=== PATIENT | male | born 1945 | race Caucasian/White ===

== ENCOUNTER 2021-12-28 22:09 | Emergency (ER) | payer MEDICARE ==
[2021-12-28 22:38] LABS: Hematocrit 37.4 % (42-50); Hemoglobin 12.1 g/dL (12.5-18.0); Mean Cell Volume 92.3 fL (78-100); Mean Corpuscular Hemoglobin 29.9 pg (26-32); Mean Corpuscular Hgb Concent. 32.4 g/dL (32-36); Mean Platelet Volume 10.3 fL (7.5-11.0); Platelet Count 154 x10^3/uL (150-450); Red Blood Count 4.05 x10^6/uL (4.1-5.6); Red Cell Distribution Width 13.4 % (11.5-14.0); White Blood Count 15.5 x10^3/uL (4.0-10.5)
--- NOTE | 2021-12-28 22:39 | ERPHSYRPT ---
- History of Present Illness Time Seen by Provider: 12/28/21 22:30 Source: patient Exam Limitations: no limitations Physician History: Patient is 76-year-old male presents to our ED via EMS for evaluation of severe low back pain. Patient also complaining of abdominal pain and chest pain. Patient's symptoms have been ongoing for approximately 3 days. Patient has been laying in bed for 3 days. Patient states he has had little to eat. Patient symptoms are getting progressively worse. On physical exam patient is noted to have a distended abdomen. Suprapubic region is distended and tender. Left lower extremity is edematous and cellulitic. Veras catheter was placed. 800 cc of urine was immediately expressed. Veras catheter was maintained. Left lower extremity pitting edema observed at 2+. Patient has a sternotomy scar from previous open heart surgery. Patient is a poor historian and unable to provide details however he does state his back abdomen and chest are hurting him. No trauma. Patient observed to have a fever of 102 upon arrival. Patient's symptoms are progressive. Symptoms are moderate in intensity. No specific worsening or improving factors. No family at bedside at this time. Patient is a poor historian. Patient voices no other complaints or concerns at this time. Portions of this note were created with voice recognition technology. There may be grammatical, spelling, punctuation or sound alike errors Timing/Duration: day(s) (3 days) Severity: moderate Modifying Factors: Improves With: nothing (Patient has not taken any analgesics for pain control.) Associated Symptoms: abdominal pain, chest pain (Associated symptoms include abdominal pain and chest pain. Patient also observed to have left lower extremity cellulitis.), No nausea, No vomiting, No shortness of breath, No headaches, No syncope, No seizure Allergies/Adverse Reactions: acetaminophen [From Tylenol] Allergy (Verified 12/29/21 02:29) codeine Allergy (Verified 12/28/21 22:44) Home Medications: Arginine [l-Arginine] 500 mg PO DAILY 12/28/21 [History] Ascorbic Acid [Vitamin C] 500 mg PO DAILY 12/28/21 [History] Aspirin 81 gm Chew [Baby Aspirin 81 mg Chew] 1 tab PO DAILY 12/28/21 [Hi story] Atorvastatin Calcium 20 mg PO DAILY 12/28/21 [History] Cider Vinegar [Apple Cider Vinegar] 450 mg PO DAILY 12/28/21 [History] Cinnamon Bark [Cinnamon] 1,000 mg PO BID 12/28/21 [History] Clopidogrel Bisulfate [Clopidogrel] 75 mg PO DAILY 12/28/21 [History] Fish Oil/Dha/Epa [Fish Oil 1,200 mg Fish Oil] 1 cap PO BID 12/28/21 [History] Furosemide 40 mg PO DAILY 12/28/21 [History] Gabapentin [Neurontin] 300 mg PO TID 12/28/21 [History] Garlic 1,000 mg PO BID 12/28/21 [History] Glipizide 10 mg [Glucotrol 10 MG] 10 mg PO BID 12/28/21 [History] Glutamine [l-Glutamine] 1 tab PO DAILY 12/28/21 [History] Hydralazine HCl 10 mg PO TID 12/28/21 [History] Insulin Glargine,Hum.rec.anlog [Basaglar Kwikpen U-100] 16 units SQ DAILY 12/28/21 [History] Isosorbide Mononitrate 30 mg [Imdur 30 MG] 1 tab PO DAILY 12/28/21 [History] L. Rham,Para/B. Lactis/Vit C [Probiotic Digestive Support Cp] 1 tab PO TID 12/28/21 [History] L.acid/L.casei/B.bif/B.prashanth/Fos [Probiotic Blend Capsule] 1 cap PO DAILY 12/28/21 [History] Loratadine [Claritin] 10 mg PO DAILY 12/28/21 [History] Prazosin HCl 5 mg PO DAILY 12/28/21 [History] Saw [place] 320 mg PO BID 12/28/21 [History] Sodium Zirconium Cyclosilicate [Lokelma] 10 gm PO DAILY 12/28/21 [History] Ubidecarenone [Coq10] 100 mg PO DAILY 12/28/21 [History] Vit B6/L. Mefolate/Me-B12/Ala [Nufola Capsule] 1 tab PO DAILY 12/28/21 [History] Vitamin B Complex [B Complex] 1 tab PO DAILY 12/28/21 [History] carvediloL [Carvedilol] 6.25 mg PO BID 12/28/21 [History] - Review of Systems All Other Systems: Unable due to condition (Severe pain and discomfort.) - Nursing Vital Signs Nursing Vital Signs: Initial Vital Signs Temperature 99.3 F 12/28/21 22:09 Pulse Rate 121 H 12/28/21 22:09 Respiratory Rate 12/28/21 22:09 Blood Pressure 180/160 12/28/21 22:09 O2 Sat by Pulse Oximetry 91 L 12/28/21 22:09 Pain Scale Pain Intensity 5 - Physical Exam General Appearance: moderate distress (Patient in severe pain. Patient complains of pain in the abdomen and chest and back. Abdomen is distended.) Eye Exam: PERRL/EOMI, eyes nml inspection, No scleral icterus Ears, Nose, Throat Exam: normal ENT inspection, TMs normal, pharynx normal, moist mucous membranes Neck Exam: normal inspection, non-tender, supple, full range of motion Respiratory Exam: normal breath sounds, lungs clear (Patient hypoxic at 91%. However lungs are clear. No respiratory distress.), airway intact (Sinus tachycardia on monitor), No chest tenderness, No respiratory distress Cardiovascular Exam: normal peripheral pulses (Unable to palpate peripheral pulses due to left lower extremity swelling) Gastrointestinal/Abdomen Exam: soft, tenderness, distention, No guarding, No hepatomegaly, No organomegaly Male Genitalia Exam: normal genitalia, No testicular tenderness Rectal Exam: deferred Back Exam: normal inspection, normal range of motion, No CVA tenderness, No vertebral tenderness Extremity Exam: normal inspection, normal range of motion, pelvis stable, swelling (Left lower extremity swelling. No calf pain.), No calf tenderness, No eboni's sign Neurologic Exam: alert (Alert and oriented x1), cooperative, normal mood/affect, sensation nml, No motor deficits, No sensory deficit, No motor weakness, No facial droop Skin Exam: normal color, warm, dry, other (Cellulitis left lower extremity), No rash Lymphatic Exam: No adenopathy SpO2 Interpretation: normal SpO2: 98 O2 Delivery: Room Air - Course Nursing assessment & vital signs reviewed: Yes EKG Interpreted by Me: RATE (121), Sinus Tach, NORMAL AXIS, Right Bundle Branch Block - CT Exams Abdomen/Pelvis CT Interpretation: Tele-radiologist Report (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 Bilateral renal artery ostial stenosis, proximal stenosis of inferior mesenteric artery, abdominal aortic and branch vessel peripheral artery disease no evidence of abdominal aortic aneurysm dissection or significant stenosis. F) Ordered Tests: Active Orders 24 hr Category Date Time Status Bead Filler STAT Care 12/28/21 22:15 Active EKG-ER Only STAT Care 12/28/21 22:14 Active IV Insertion STAT Care 12/28/21 22:14 Active Pulse Oximetry (ED) STAT Care 12/28/21 22:14 Active CTA ABD/PEL W AND/OR W/O CONTR [CT] Stat Exams 12/28/21 22:18 Taken CTA CHEST W AND/OR WO [CT] Stat Exams 12/28/21 22:18 Taken BLOOD CULTURE Stat Lab 12/28/21 22:50 Received CBC W DIFF Stat Lab 12/28/21 22:35 Completed CK-Creatinine Phosphokinase Stat Lab 12/28/21 22:35 Completed CMP Stat Lab 12/28/21 22:35 Completed LIPASE Stat Lab 12/28/21 22:35 Completed Lactic Acid Stat Lab 12/28/21 23:08 Completed Lactic Acid Stat Lab 12/29/21 01:31 Received Manual Differential NC Stat Lab 12/28/21 22:35 Completed NT PRO BNP Stat Lab 12/28/21 22:35 Completed PROCALCITONIN Stat Lab 12/28/21 23:23 Completed TROPONIN Q3H Lab 12/28/21 22:35 Completed TROPONIN Q3H Lab 12/29/21 01:36 Completed TROPONIN Q3H Lab 12/29/21 04:15 Ordered TROPONIN Q3H Lab 12/29/21 07:15 Ordered TROPONIN Q3H Lab 12/29/21 10:15 Ordered TSH [TSH, 3RD Generation] Stat Lab 12/28/21 22:52 Completed UA W/RFX CULTURE Stat Lab 12/28/21 23:25 Completed Medication Summary Generic Name Dose Route Start Last Admin Trade Name Freq PRN Reason Stop Dose Admin Nitroglycerin/Dextrose 250 mls @ 1.5 mls/hr 12/29/21 00:28 12/29/21 02:29 Ntg 0.2mg/Ml In D5w Glass IV 01/28/22 00:27 2.5 mcg/min .Q24H PRN 0.75 mls/hr CHEST PAIN Titration Protocol 5 MCG/MIN Discontinued Medications Generic Name Dose Route Start Last Admin Trade Name Freq PRN Reason Stop Dose Admin Heparin Sodium (Beef Lung) Confirm 12/29/21 00:35 Heparin 5000 Unit/0.5 Ml Syringe Administered 12/29/21 00:36 Dose 5,000 unit .ROUTE .STK-MED ONE Vancomycin HCl 1 gm in 200 mls @ 125 mls/hr 12/28/21 23:15 12/29/21 00:08 Vancomycin 1 Gram/200 Ml Bag IV 12/29/21 00:50 125 ml/hr STAT ONE 125 mls/hr Administration Piperacillin Sod/Tazobactam 100 mls @ 200 mls/hr 12/28/21 23:16 12/28/21 23:38 Sod 3.375 gm/ Sodium Chloride IV 12/28/21 23:45 200 mls/hr STAT ONE Administration Sodium Chloride Confirm 12/28/21 23:37 Sodium Chloride 100ml Mini-Bag Plus Administered 12/28/21 23:38 Dose 100 mls @ ud IV .STK-MED ONE Vancomycin HCl Confirm 12/29/21 00:08 Vancomycin 1 Gram/200 Ml Bag Administered 12/29/21 00:09 Dose 1 gm in 200 mls @ ud IV .STK-MED ONE Heparin Sodium/Dextrose Confirm 12/29/21 00:36 Heparin 25,000 Units/D5w 250ml Premix Administered 12/29/21 00:37 Dose 25,000 units in 250 mls @ ud IV .STK-MED ONE Morphine Sulfate 2 mg 12/28/21 22:41 12/28/21 23:09 Morphine Sulfate 2 Mg/Ml Inj IV 12/28/21 22:42 2 mg STAT ONE Administration Morphine Sulfate Confirm 12/28/21 23:09 Morphine Sulfate 2 Mg/Ml Inj Administered 12/28/21 23:10 Dose 2 mg .ROUTE .STK-MED ONE Ondansetron HCl 4 mg 12/28/21 23:14 12/28/21 23:16 Ondansetron Hcl 4 Mg/2 Ml Vial IV 12/28/21 23:15 4 mg STAT ONE Administration Ondansetron HCl Confirm 12/28/21 23:15 Ondansetron Hcl 4 Mg/2 Ml Vial Administered 12/28/21 23:16 Dose 4 mg .ROUTE .STK-MED ONE Piperacillin Sod/Tazobactam Sod Confirm 12/28/21 23:35 Piperacillin/Tazobactam Sodium 3.375 Gm Vial Administered 12/28/21 23:36 Dose 3.375 gm IV .STK-MED ONE Piperacillin Sod/Tazobactam Sod Confirm 12/28/21 23:37 Piperacillin/Tazobactam Sodium 3.375 Gm Vial Administered 12/28/21 23:38 Dose 3.375 gm IV .STK-MED ONE Lab/Rad Data: Laboratory Result Diagrams 12/28/21 22:35 12/28/21 22:35 Laboratory Results 12/29/21 12/28/21 12/28/21 Range/Units 01:36 23:25 23:23 WBC (4.0-10.5) x10^3/uL RBC (4.1-5.6) x10^6/uL Hgb (12.5-18.0) g/dL Hct (42-50) % MCV (78-100) fL MCH (26-32) pg MCHC (32-36) g/dL RDW (11.5-14.0) % Plt Count (150-450) x10^3/uL MPV (7.5-11.0) fL Segmented Neutrophils (36.-66.) % Band Neutrophils (0.0-2.0) % Lymphocytes (Manual) (24-44) % Monocytes (Manual) (0.0-12.0) % Dohle Bodies Platelet Estimate (NORMAL) RBC Morphology Sodium (137-145) mmol/L Potassium (3.5-5.1) mmol/L Chloride (98-107) mmol/L Carbon Dioxide (22-30) mmol/L Anion Gap (5-15) MEQ/L BUN (9-20) mg/dL Creatinine (0.66-1.25) mg/dL Estimated GFR ML/MIN Glucose (74-106) mg/dL Lactic Acid (0.4-2.0) Calcium (8.4-10.2) mg/dL Total Bilirubin (0.2-1.3) mg/dL AST (17-59) U/L ALT (0-50) U/L Alkaline Phosphatase (38-126) U/L Creatine Kinase (55-170) U/L Troponin I 5.930 H* (0.000-0.034) ng/mL NT-Pro-B Natriuret Pep (0-1800) pg/mL Serum Total Protein (6.3-8.2) g/dL Albumin (3.5-5.0) g/dL Lipase (23-300) U/L Procalcitonin 43.800 H* (0.030-0.080) ng/mL TSH 3rd Generation (0.47-4.68) mIU/L Urinalys Dipstick Clnc MAIN LAB Urine Color YELLOW (YELLOW) Urine Appearance CLEAR (CLEAR) Urine pH 5.0 (5-6) Ur Specific Petty 1.025 (1.005-1.025) POC Urine Protein Conf 100 (Negative) Urine Ketones NEGATIVE (NEGATIVE) Urine Nitrite NEGATIVE (NEGATIVE) Urine Bilirubin NEGATIVE (NEGATIVE) Urine Urobilinogen 0.2 (0-1) mg/dL Urine Leukocytes NEGATIVE (NEGATIVE) Urine WBC (Auto) 0-2 (0-5) /HPF Urine RBC (Auto) 3-5 (0-2) /HPF U Epithel Cells (Auto) NONE (FEW) /HPF Urine Bacteria (Auto) NONE SEEN (NEGATIVE) /HPF Urine RBC SMALL (0-5) Jose Miguel/ul Ur Culture Indicated? NO Urine Glucose 100 (NEGATIVE) mg/dL Influenza Type A Ag (NEGATIVE) Influenza Type B Ag (NEGATIVE) RSV (PCR) (Negative) SARS-CoV-2 (PCR) (NEGATIVE) 12/28/21 12/28/21 12/28/21 Range/Units 23:23 23:08 22:52 WBC (4.0-10.5) x10^3/uL RBC (4.1-5.6) x10^6/uL Hgb (12.5-18.0) g/dL Hct (42-50) % MCV (78-100) fL MCH (26-32) pg MCHC (32-36) g/dL RDW (11.5-14.0) % Plt Count (150-450) x10^3/uL MPV (7.5-11.0) fL Segmented Neutrophils (36.-66.) % Band Neutrophils (0.0-2.0) % Lymphocytes (Manual) (24-44) % Monocytes (Manual) (0.0-12.0) % Dohle Bodies Platelet Estimate (NORMAL) RBC Morphology Sodium (137-145) mmol/L Potassium (3.5-5.1) mmol/L Chloride (98-107) mmol/L Carbon Dioxide (22-30) mmol/L Anion Gap (5-15) MEQ/L BUN (9-20) mg/dL Creatinine (0.66-1.25) mg/dL Estimated GFR ML/MIN Glucose (74-106) mg/dL Lactic Acid 2.4 H (0.4-2.0) Calcium (8.4-10.2) mg/dL Total Bilirubin (0.2-1.3) mg/dL AST (17-59) U/L ALT (0-50) U/L Alkaline Phosphatase (38-126) U/L Creatine Kinase (55-170) U/L Troponin I (0.000-0.034) ng/mL NT-Pro-B Natriuret Pep (0-1800) pg/mL Serum Total Protein (6.3-8.2) g/dL Albumin (3.5-5.0) g/dL Lipase (23-300) U/L Procalcitonin (0.030-0.080) ng/mL TSH 3rd Generation 1.350 (0.47-4.68) mIU/L Urinalys Dipstick Clnc Urine Color (YELLOW) Urine Appearance (CLEAR) Urine pH (5-6) Ur Specific Petty (1.005-1.025) POC Urine Protein Conf (Negative) Urine Ketones (NEGATIVE) Urine Nitrite (NEGATIVE) Urine Bilirubin (NEGATIVE) Urine Urobilinogen (0-1) mg/dL Urine Leukocytes (NEGATIVE) Urine WBC (Auto) (0-5) /HPF Urine RBC (Auto) (0-2) /HPF U Epithel Cells (Auto) (FEW) /HPF Urine Bacteria (Auto) (NEGATIVE) /HPF Urine RBC (0-5) Jose Miguel/ul Ur Culture Indicated? Urine Glucose (NEGATIVE) mg/dL Influenza Type A Ag NEGATIVE (NEGATIVE) Influenza Type B Ag NEGATIVE (NEGATIVE) RSV (PCR) NEGATIVE (Negative) SARS-CoV-2 (PCR) NEGATIVE (NEGATIVE) 12/28/21 12/28/21 12/28/21 Range/Units 22:35 22:35 22:35 WBC 15.5 H (4.0-10.5) x10^3/uL RBC 4.05 L (4.1-5.6) x10^6/uL Hgb 12.1 L (12.5-18.0) g/dL Hct 37.4 L (42-50) % MCV 92.3 (78-100) fL MCH 29.9 (26-32) pg MCHC 32.4 (32-36) g/dL RDW 13.4 (11.5-14.0) % Plt Count 154 (150-450) x10^3/uL MPV 10.3 (7.5-11.0) fL Segmented Neutrophils 80 H (36.-66.) % Band Neutrophils 13 H (0.0-2.0) % Lymphocytes (Manual) 4 L (24-44) % Monocytes (Manual) 3 (0.0-12.0) % Dohle Bodies 2+ Platelet Estimate NORMAL (NORMAL) RBC Morphology NORMAL Sodium 133 L (137-145) mmol/L Potassium 4.9 (3.5-5.1) mmol/L Chloride 95 L (98-107) mmol/L Carbon Dioxide 23 (22-30) mmol/L Anion Gap 20.1 H (5-15) MEQ/L BUN 68 H (9-20) mg/dL Creatinine 2.69 H (0.66-1.25) mg/dL Estimated GFR 24.6 ML/MIN Glucose 252 H (74-106) mg/dL Lactic Acid (0.4-2.0) Calcium 9.0 (8.4-10.2) mg/dL Total Bilirubin 1.20 (0.2-1.3) mg/dL AST 116 H (17-59) U/L ALT 84 H (0-50) U/L Alkaline Phosphatase 65 (38-126) U/L Creatine Kinase 629 H (55-170) U/L Troponin I 6.220 H* (0.000-0.034) ng/mL NT-Pro-B Natriuret Pep 65325 H (0-1800) pg/mL Serum Total Protein 7.4 (6.3-8.2) g/dL Albumin 4.0 (3.5-5.0) g/dL Lipase 133 (23-300) U/L Procalcitonin (0.030-0.080) ng/mL TSH 3rd Generation (0.47-4.68) mIU/L Urinalys Dipstick Clnc Urine Color (YELLOW) Urine Appearance (CLEAR) Urine pH (5-6) Ur Specific Petty (1.005-1.025) POC Urine Protein Conf (Negative) Urine Ketones (NEGATIVE) Urine Nitrite (NEGATIVE) Urine Bilirubin (NEGATIVE) Urine Urobilinogen (0-1) mg/dL Urine Leukocytes (NEGATIVE) Urine WBC (Auto) (0-5) /HPF Urine RBC (Auto) (0-2) /HPF U Epithel Cells (Auto) (FEW) /HPF Urine Bacteria (Auto) (NEGATIVE) /HPF Urine RBC (0-5) Jose Miguel/ul Ur Culture Indicated? Urine Glucose (NEGATIVE) mg/dL Influenza Type A Ag (NEGATIVE) Influenza Type B Ag (NEGATIVE) RSV (PCR) (Negative) SARS-CoV-2 (PCR) (NEGATIVE) - Progress Progress: improved Progress Note: We will try to transfer patient to [facility] however they have no beds available at this time. He contacted [facility]. Case discussed with Dr. Quezada hospitalist who accepts transfer. Patient be transferred to their ICU. We are awaiting return call for bed assignment. Plan of care discussed with patient. He agrees to transfer to [facility] for further evaluation and treatment. Work-up at this point suggests his sepsis. Patient has cellulitis of the left leg. He had a fever of 102. Patient has a leukocytosis of 15.5 with a bandemia of 13 and a neutrophil percentage of 80%. Lactic acidosis of 2.4 with an anion gap of 20.1. Patient is mildly hyperglycemic at 252. Procalcitonin 43. Patient received vancomycin and Zosyn. Work-up reveals acute renal injury with a BUN and creatinine of 68 over 2.69. BNP elevated at 12,300. Initial troponin 6.2. Repeat troponin 3 hours post was 5.930. Patient currently on a heparin drip. Nitro drip ordered as well. Patient was mildly hypoxic upon arrival. Patient had a CTA chest abdomen and pelvis. No dissection observed. Dissection was suspected based on the nature of patient's symptoms. Patient had severe chest abdomen and back pain. CTA of the chest did not reveal pneumonia no consolidations or infiltrates. No pulmonary edema. The source of his hypoxia is unclear. Patient currently on 2 L nasal cannula resting comfortably. We are currently awaiting return call from [facility] for bed assignment to arrange ground transport. 12/29/21 02:09 Room assignment [id number] at [facility] patient will likely need a left lower extremity venous ultrasound to rule out DVT. There is swelling tenderness and erythema to the involved left lower extremity. We are unable to obtain a ultrasound this evening. However patient covered currently on heparin drip. 12/29/21 02:30 Counseled pt/family regarding: lab results, diagnosis, rad results - Departure Departure Disposition: Transfer Clinical Impression: Fever, Urinary retention, Hypoxia, Cellulitis of left leg, Elevated troponin, Leukocytosis, Acute renal injury, High anion gap metabolic acidosis, Elevated CK, Elevated brain natriuretic peptide (BNP) level, Hyperglycemia, Coronary artery calcification, Arthritis of spine, Hilar lymphadenopathy, Mediastinal lymphadenopathy, Diarrhea, NSTEMI (non-ST elevated myocardial infarction), Sepsis, Back pain Condition: Stable Critical Care Time: Yes Critical Care Time(excluding separately billable procedures): Critical 75-104 mins Referrals: JINA RODGERS [employer] [Primary Care Provider] - Follow up/PCP as directed
[2021-12-28] MEDS ORDERED: MORPHINE SULFATE 2 MG INJ IV ONE (22:41)
[2021-12-28 23:00] LABS: ANION GAP 20.1 MEQ/L (5-15); BILIRUBIN,TOTAL 1.2 mg/dL (0.2-1.3); Creatinine 1 2.69 mg/dL (0.66-1.25); EST GLOMERULAR FILTRATION RATE 24.6 ML/MIN; Potassium 4.9 mmol/L (3.5-5.1); Total Protein 7.4 g/dL (6.3-8.2)
[2021-12-28] MEDS ORDERED: MORPHINE SULFATE 2 MG INJ ONE (23:09)
[2021-12-28] MEDS ORDERED: Zofran 4 MG/2 ML VIAL IV ONE (23:14)
[2021-12-28] MEDS ORDERED: Zofran 4 MG/2 ML VIAL ONE (23:15)
[2021-12-28] MEDS ORDERED: VANCOMYCIN 1 GRAM/200 ML BAG 1 GM/200 ML PIGGYBACK IV ONE (23:15)
[2021-12-28] MEDS ORDERED: PIPERACILLIN/TAZOBACTAM 3.375 GM in Sodium Chloride 100ML MINI-BAG PLUS 100 ML IV ONE (23:16)
[2021-12-28] MEDS ORDERED: PIPERACILLIN/TAZOBACTAM IV ONE ×2 (23:35→23:37)
[2021-12-28] MEDS ORDERED: Sodium Chloride 100ML MINI-BAG PLUS 100 ML IV ONE (23:37)
[2021-12-28 23:43] LABS: Appearance CLEAR (CLEAR); Bilirubin NEGATIVE (NEGATIVE); Glucose 100 mg/dL (NEGATIVE); Ketones NEGATIVE (NEGATIVE); RBC SMALL Ery/ul (0-5); Specific Gravity 1.025 (1.005-1.025); WBC 0-2 /HPF (0-5)
[2021-12-28 23:44] LABS: Bacteria NONE SEEN /HPF (NEGATIVE); Dipstick done @ ? MAIN LAB; Nitrite NEGATIVE (NEGATIVE); Protein,Urine Dip 100 (Negative); Urine Cultured Indicated? NO; Urobilinogen 0.2 mg/dL (0-1)
[2021-12-28 23:47] LABS: BAND 13 % (0.0-2.0); Lymphocytes 4 % (24-44); Monocyte 3 % (0.0-12.0); Total Cells Counted 100
[2021-12-28 23:48] LABS: Dohle Bodies 2+
[2021-12-28 23:49] LABS: Platelet Estimate NORMAL (NORMAL)
[2021-12-29 00:03] LABS: INFLUENZA A NEGATIVE (NEGATIVE); INFLUENZA B NEGATIVE (NEGATIVE); RESPIRATORY SYNCTIAL VIRUS NEGATIVE (Negative); SARS-CoV-2 Xpert Express NEGATIVE (NEGATIVE)
[2021-12-29] MEDS ORDERED: VANCOMYCIN 1 GRAM/200 ML BAG 1 GM/200 ML PIGGYBACK IV ONE (00:08)
[2021-12-29] MEDS ORDERED: Ntg 0.2MG/Ml in D5W GLASS*** 250 ML IV PRN (00:28)
[2021-12-29] MEDS ORDERED: Heparin 5000 UNITS/0.5 ML (HIGH RISK MED) ONE (00:35)
[2021-12-29] MEDS ORDERED: Heparin 25,000 units/D5W 250ML PREMIX 25,000 UNITS/250 ML BAG IV ONE (00:36)
[2021-12-29] MEDS ORDERED: Ntg 0.2MG/Ml in D5W GLASS*** 250 ML IV ONE (02:13)
[2021-12-29 03:35] VITALS: BP 113/64; PULSE 103; O2SAT 96
--- NOTE | 2021-12-29 08:55 | XRAY ---
Indication: Chest, abdomen, and flank pain. Aortic dissection/AAA. Conventional contrast-enhanced CTA chest performed using 100 cc Isovue 370 contrast. Two-dimensional sagittal and coronal reformatted images obtained. Additional 3-dimensional reformatted images obtained using a separate workstation. Comparison: None Thoracic aorta is minimally arteriosclerotic without aneurysm/dissection. Heart borderline enlarged with CABG and moderate scattered coronary calcifications. No central pulmonary embolus. No pathologic mediastinal/hilar lymphadenopathy. Lungs Limited by diffuse respiration artifact. Moderate/significant bilateral dependent atelectasis greatest near the lung bases. Tiny right effusion. No suspicious pulmonary mass, infiltrate, or pneumothorax. Bony thorax intact with mild degenerative changes throughout the spine and sternotomy wires. CTA abdomen/pelvis reported separately. Impression: 1. Minimal arteriosclerotic aorta. Negative AAA/dissection. 2. Borderline cardiomegaly with tiny right effusion. Mild/early cardiac decompensation/CHF not completely excluded in the right clinical setting. Comment: Preliminary interpretation made by C. No critical discrepancy.
--- NOTE | 2021-12-29 09:02 | XRAY ---
Indication: Chest, abdomen, and flank pain. Aortic dissection/AAA. Conventional contrast-enhanced CTA abdomen/pelvis performed using 100 cc Isovue 370 contrast. Two-dimensional sagittal and coronal reformatted images obtained. Additional 3-dimensional reformatted images obtained using a separate workstation. Comparison: None CTA chest reported separately. Abdominal aorta demonstrates mild/moderate scattered arteriosclerotic calcifications including great branches, greatest celiac and superior mesenteric arteries. Negative aneurysm/dissection. A single renal artery supplies each kidney with mild/moderate calcifications at both origins. Visualized iliac vessels also demonstrates moderate scattered calcifications without aneurysm. Abdomen/pelvis degraded by diffuse respiration artifact throughout. Stomach is distended with fluid/air. Noncontrasted stomach and bowel loops appear nonobstructed. Mild fluid distended colon throughout with fluid leveling favoring diarrhea. Urinary bladder near empty with Veras balloon catheter in situ. Previous cholecystectomy. No free fluid/air. A few bilateral renal cysts, largest left midpole measuring 2.8 cm. Remaining liver, pancreas, spleen, adrenal glands, kidneys, and ureters unremarkable for noncontrast exam. No pathologic retroperitoneal lymphadenopathy. Osseous structures intact with mild/moderate multilevel degenerative spondylosis, mild dextroscoliosis centered at L3, and mild bilateral hip degenerative arthropathy. Impression: 1. Mild/moderate arteriosclerotic aorta including great branches. Negative AAA/dissection. 2. Incidental colonic diarrhea, bilateral renal cysts, Veras balloon catheter in situ, and chronic bone findings. Comment: Preliminary interpretation made by [facility]. No critical discrepancy.
== END 2021-12-29 03:10 | disposition short-term general hospital (02) ==
LOC: ED 22:09
DX: L03.116 Cellulitis of left lower limb (principal); A41.9 Sepsis, unspecified organism; R65.20 Severe sepsis without septic shock; N17.9 Acute kidney failure, unspecified; I21.4 Non-ST elevation (NSTEMI) myocardial infarction; R50.9 Fever, unspecified; R33.9 Retention of urine, unspecified; R09.02 Hypoxemia; R77.8 Other specified abnormalities of plasma proteins; D72.829 Elevated white blood cell count, unspecified; E87.2 Acidosis; R74.8 Abnormal levels of other serum enzymes; R79.89 Other specified abnormal findings of blood chemistry; I25.10 Atherosclerotic heart disease of native coronary artery without angina pectoris; R73.9 Hyperglycemia, unspecified; M47.9 Spondylosis, unspecified; R59.0 Localized enlarged lymph nodes; R19.7 Diarrhea, unspecified; M54.50 Low back pain, unspecified; I50.9 Heart failure, unspecified; R07.9 Chest pain, unspecified; R10.9 Unspecified abdominal pain; Z79.02 Long term (current) use of antithrombotics/antiplatelets; Z79.84 Long term (current) use of oral hypoglycemic drugs; Z79.4 Long term (current) use of insulin; Z79.899 Other long term (current) drug therapy
CPT/HCPCS: 0241U; 36000; 36415; 51702; 71275; 74174; 80053; 81015; 82550; 83605; 83690; 83880; 84145; 84443; 84484; 85025; 87040; 87077; 93005; 93041; 94760; 96374; 96375; 99285; 99291; 99292; J1644; J2270; J2405; J3370